=== PATIENT | male | born 1960 | race Caucasian/White ===

== ENCOUNTER 2025-10-05 16:49 | Emergency (ER) | payer BC ==
[~2025-10-05] VITALS: Ht 182.9 cm; Wt 80.5 kg
[2025-10-05] MEDS: LIDOCAINE 1% MDV 20 ML VIAL SC ONE (18:53)
[2025-10-05 19:15] VITALS: BP 120/64; TEMP 96.4; O2SAT 100
[2025-10-05] MEDS ORDERED: CEPH500C PO (19:17)
== END 2025-10-05 19:33 | disposition home or self-care (01) ==
LOC: M ED 16:49
DX: L03.011 Cellulitis of right finger (principal)